=== PATIENT | female | born 1980 | race Caucasian/White ===

== ENCOUNTER 2024-03-04 11:19 | Outpatient (CLI) | payer OTHER, BC, SELFPAY | END 2024-03-04 11:20 | disposition home or self-care (01) | LOC: AMB 03-18 06:38 | PROVIDERS: Visit Provider Student in an Organized Health Care Education/Training Program | DX: S69.92XA Unspecified injury of left wrist, hand and finger(s), initial encounter (principal); V43.53XA Car driver injured in collision with pick-up truck in traffic accident, initial encounter; Y92.410 Unspecified street and highway as the place of occurrence of the external cause | CPT/HCPCS: A0998 ==